=== PATIENT | female | born 1970 ===

== ENCOUNTER 2019-02-08 13:30 | Day surgery (SDC) | payer BC ==
[2019-02-08] MEDS ORDERED: LIDOCAINE 2% MDV (20MG/ML) 20ML VIAL IV ONE (13:31)
[2019-02-08] MEDS ORDERED: PROPOFOL 10 MG/ML VIAL IV ONE (13:31)
--- NOTE | 2019-02-09 12:50 | Operative Note ---
OPERATION: Screening COLONOSCOPY. PREOPERATIVE DIAGNOSIS: Family history of colon cancer and strong family history of colon polyps. POSTOPERATIVE DIAGNOSIS: Redundant colon, otherwise normal exam. PREPARATION QUALITY: Excellent. ESTIMATED BLOOD LOSS: None. SPECIMENS: None. COMPLICATIONS: None apparent. PROCEDURE: After informed consent was obtained from the patient, she was placed in the left lateral decubitus position in the endoscopy suite, sedated and monitored by the department of anesthesia. Digital rectal examination was unremarkable. A well-lubricated [id number] colonoscope was inserted into the rectum and advanced through a quite redundant colon to the level of the cecum. Preparation quality was excellent. The cecum, cecal bulb, ileocecal valve, appendiceal orifice, ascending colon, transverse colon, descending colon, sigmoid colon, and rectum were free of inflammatory changes, mass lesions, or polyps. Forward and J-turn views of the rectum and anorectum were unremarkable. The endoscope was straightened, the rectal ampulla deflated, and the endoscope was removed. RECOMMENDATIONS: At this point, given the patient's family history, I will plan on performing a repeat exam in 3 years based on her high risk. Should she find out any additional genetic information related to her family history, this recommendation can be amended. At this time, it seems to be a reasonably initial plan. As always, thank you for allowing me to participate in the healthcare of your patients. SUZETTE
== END 2019-02-08 15:45 | disposition home or self-care (01) ==
LOC: HOP 13:30
PROVIDERS: ATTEND Internal Medicine Gastroenterology
DX: Z12.11 Encounter for screening for malignant neoplasm of colon (principal); Z80.0 Family history of malignant neoplasm of digestive organs; Z83.71 Family history of colonic polyps; Q43.8 Other specified congenital malformations of intestine
CPT/HCPCS: 00812; G0105